=== PATIENT | male | born 1955 | race Two or more races ===

== ENCOUNTER 2016-07-05 07:51 | Day surgery (SDC) | payer OTHER ==
[~2016-07-05] VITALS: Ht 167.6 cm; Wt 67.0 kg
[2016-07-05] MEDS ORDERED: cholesterol meds (09:41)
[2016-07-05] MEDS ORDERED: LOSA25TA47 PO (09:41)
[2016-07-05 09:47] VITALS: Ht 167.6 cm; Wt 67.0 kg
[2016-07-05 09:53] VITALS: BP 129/95; PULSE 69; RESP 18
[2016-07-05] MEDS ORDERED: FENTAnyl 50 MCG/ML VIAL ONE (10:27)
[2016-07-05] MEDS ORDERED: MIDAZOLAM 1 MG/ML 2 ML INJ ONE ×2 (10:27)
[2016-07-05 10:37] VITALS: BP 126/83; PULSE 71
[2016-07-05 11:17] VITALS: BP 139/90; PULSE 72; RESP 16
--- NOTE | 2016-07-05 17:56 | GILP ---
DATE OF PROCEDURE: 07/05/2016 NAME OF PROCEDURE: Colonoscopy. SURGEON: Talat Alvarez MD PREOPERATIVE DIAGNOSIS: Screening colonoscopy. POSTOPERATIVE DIAGNOSES: 1. Colonoscopy all the way to the cecum. 2. Diverticulosis of the colon. 3. Internal hemorrhoids. 4. No colon neoplasm was identified. INDICATION FOR THE PROCEDURE: Mr. Lesa Foster is a 60-year-old male patient who was sched uled for screening colonoscopy. The procedure and possible complications were well explained to the patient, he understood and conse nted to the procedure. DESCRIPTION OF PROCEDURE: Under the influence of fentanyl and Versed, the colonoscope was carefully introduced in the rectum and under direct vision, it was advanced all the way to the cecum. FINDINGS: The patient had diverticulosis of the colon. He also had small internal hemorrhoids. No colon neoplasm was identified. The patient tolerated the procedure very well and there was no complication from the procedure. At the end of the procedure, he was awake with stable vital signs and he was discharged home to the car e of his family. IMPRESSION: 1. Colonoscopy all the way to the cecum. 2. Diverticulosis of the colon. 3. Small internal hemorrhoids. 4. No colon neoplasm was identified. PLAN: Next screening colonoscopy in 10 years. Dictated By: TALAT JOSEPH/VICKI Conf#: [id number] DID#: [id number] CC: TALAT ALVAREZ MD;*EndCC*
== END 2016-07-05 11:46 | disposition home or self-care (01) ==
LOC: GIL 07:51
PROVIDERS: ATTEND Internal Medicine Gastroenterology
DX: Z12.11 Encounter for screening for malignant neoplasm of colon (principal); K57.30 Diverticulosis of large intestine without perforation or abscess without bleeding; K64.8 Other hemorrhoids; I10 Essential (primary) hypertension; E78.5 Hyperlipidemia, unspecified
CPT/HCPCS: 45378; J2250; J3010; Z7610